=== PATIENT | female | born 1995 | race Caucasian/White ===

== ENCOUNTER → 2022-03-17 10:51 | Outpatient (BNVA) | payer OTHER, MEDICAID, SELFPAY | PROVIDERS: PCP Internal Medicine; Referring Provider Internal Medicine; Visit Provider Surgery | DX: K64.5 Perianal venous thrombosis (principal) | CPT/HCPCS: 46600 ==

== ENCOUNTER → 2022-11-18 10:19 | Outpatient (BNVA) | payer OTHER, MEDICAID, SELFPAY | PROVIDERS: PCP Internal Medicine; Referring Provider Internal Medicine; Visit Provider Physician Assistant Surgical ==

== ENCOUNTER 2022-12-22 13:56 | Outpatient (AMB) | payer OTHER, MEDICAID, SELFPAY ==
--- NOTE | 2022-12-22 13:58 | MHC.OFFVISWM ---
Intake VS Expanded 12/22/22 13:59 Height 5 ft 5 in Weight 239 lb 6.4 oz BMI 39.8 BP 131/70 Blood Pressure Location Rt brachial Blood Pressure Position Sitting Pulse 87 Pulse Source Pulse Oximeter Temp 98.4 F Temperature Source Temporal Artery Scan Pulse Oximetry 95 Oxygen Delivery Method Room Air Body Fat 103.0 Body Fat Percentage 43.0 Free Fat Mass 136.2 Muscle Mass 129.4 Visceral Mass 10.0 Water Mass 97.8 BMR 1,941 Intake Visit Reasons: (OV) [employer] [facility] Allergies Sulfa (Sulfonamide Antibiotics) Allergy (Severe, Verified 12/22/22 14:02) Hives HPI HPI Comments History of Present Illness Details This is a 27 year old woman who was sent by her PCP to lose weight due to elevated cholesterol. She states she does not want bariatric surgery and she does not have money to join our [facility] program. Her goal is to weigh around 180. She reports first being concerned about her weight 2 years - when diagnosed with high cholesterol. She has tried multiple methods of weight loss including Keto without permanent results. She lives with her 3 zheng. She works 5 days per week 7:30a m- 4:30 pm She wakes at: 6am bed at 7pm Breakfast: 8am -nutrigrain bar or PB crackers, drinks coffee with creamer, water Lunch: carrots and ranch dressing or may have small salad or crackers Dinner: 6pm - meat, mashed potatoes and vegetable, water After dinner: none Other snacks: see above Liquids: rare soda, juice 3d/ week Alcohol intake: rare, tobacco: none, marijuana: none Exercise: has treadmill - 2-3 d/week. speed 2-5, incline up to 10, fo r 30 - 60 minutes, calories?? control method: having BTL in February SANTANA: 1 ESS:5 GERD0: QOL: 56 [facility] Medical History (Updated 12/22/22 @ 14:32 by Mihaela Wilder PA-C) Thrombosed external hemorrhoid Surgical History History of tonsillectomy and adenoidectomy Hx of unilateral salpingectomy Family History Father No problems noted. Mother No problems noted. Brother No problems noted. Brother No problems noted. Daughter No problems noted. Daughter No problems noted. Daughter No problems noted. Social History Alcohol intake: current Alcohol intake frequency: holidays/special occasions only Patient Tobacco Use Status: Never used Tobacco e-Cigarette/Vaping Use: Never Used Assessment & Plan Assessment & Plan (1) Obesity: Code(s): E66.9 - Obesity, unspecified Plan: Pt was given information to help her have a healthier lifestyle, she said she would return if she ahs the money to join our [facility] program. Stop juice and soda Stop skipping meals 8am - 30 gram shake with 1/2 berries 12pm- salad with 4 oz lean protein 3pm- protien bar 6pm- lean protien, vegetables and 1 cup carbs Exercise - treadmill - goal of 2,000 calories burned over the week in at least 4d/ week Start with 300 - 350 calories burned per session and then increase. RTC prn. Patient is morbidly obese and is not considered stable at this time. I spent 35 minutes in total with patient reviewing/updating records, examining the patient and counseling the patient on weight management as detailed above. (2) Elevated cholesterol: Code(s): E78.00 - Pure hypercholesterolemia, unspecified Plan: labs [facility] - cholesterol 220, triglycerides 145, will follow up with PCP. Coding Level of Care Code New Pt Level 4 (61517) Diagnoses Obesity E66.9 Elevated cholesterol E78.00
[2022-12-22 13:59] VITALS: BP 131/70; PULSE 87; TEMP 36.9; O2SAT 95; BMI 39.8
== END 2022-12-22 14:36 | disposition home or self-care (01) ==
PROVIDERS: PCP Internal Medicine; Visit Provider Physician Assistant
DX: E66.9 Obesity, unspecified (principal); Z68.39 Body mass index [BMI] 39.0-39.9, adult; E78.00 Pure hypercholesterolemia, unspecified
CPT/HCPCS: 99203

== ENCOUNTER → 2022-12-22 13:56 | Outpatient (BNVA) | payer OTHER, MEDICAID, SELFPAY | PROVIDERS: PCP Internal Medicine; Visit Provider Physician Assistant ==